=== PATIENT | female | born 1990 | race Hispanic/Latino ===

== ENCOUNTER → 2024-02-06 | Day surgery (SDC) | payer OTHER ==
[2024-02-04 16:30] LABS: BASOPHILS # (AUTO) 0.1 (0.0-0.1); BASOPHILS % 0.7 % (0.0-1.0); EOSINOPHILS # (AUTO) 0.1 (0.0-0.4); EOSINOPHILS % 1.2 % (0.0-6.0); HEMATOCRIT 39.2 % (34.2-44.1); HEMOGLOBIN 13.1 g/dL (12.0-16.0); LYMPHOCYTES # (AUTO) 2.7 (1.0-3.2); LYMPHOCYTES % 36.5 % (18.0-39.1); MEAN CORPUSCULAR HEMOGLOBIN 30.1 pg (28-32); MEAN CORPUSCULAR HGB CONC 33.4 g/dL (31-35); MEAN CORPUSCULAR VOLUME 90.1 fL (81-99); MONOCYTES # (AUTO) 0.5 (0.2-0.8); MONOCYTES % 7.2 % (4.4-11.3); NEUTROPHILS % 54.3 % (38.7-80.0); PLATELET COUNT 241 x10e3/uL (140-360); RED BLOOD COUNT 4.35 x10e6/uL (3.6-5.1); RED CELL DISTRIBUTION WIDTH 12.3 % (11.7-14.4); WHITE BLOOD COUNT 7.45 x10e3/uL (4.8-10.8)
[2024-02-04 16:50] LABS: ANION GAP 15.3 mmol/L (8-16); BILIRUBIN,TOTAL 0.4 mg/dL (0.2-1.2); CALCIUM 9.2 mg/dL (8.4-10.2); CREATININE, SERUM 0.78 mg/dL (0.57-1.11); POTASSIUM 4.3 mmol/L (3.5-5.1); TOTAL PROTEIN 7.3 g/dL (6.5-8.1)
[2024-02-04 16:51] LABS: ALBUMIN/GLOBULIN RATIO 1.2 (0.8-2.0)
[~2024-02-06] MED LIST: BUPIVACAINE HCL 0.5% INJ 30 ML VIAL INJ ONE; DEXAMETHASONE SOD PHOS INJ 4 MG/ML SDV ONE; EPINEPHRINE HCL 1:1000 1ML 1 MG/ML AMP ONE; FENTANYL CITRATE/PF 100MCG/2 ML INJ ONE; IBUPROFEN400 MG PO; KETOROLAC TROMETHAMINE 30 MG/ML VIAL ONE; LIDOCAINE 1% W/EPINEPHRINE 20 ML VIAL ONE; LIDOCAINE HCL 2% LOCAL INJ 5 ML SDV VIAL INJ ONE; MELOXICAM7.5 MG PO; MIDAZOLAM HCL 2 MG/2 ML VIAL ONE; ONDANSETRON HCL INJ 2MG/ML 2ML 2 MG/ML VIAL ONE; PROPOFOL IV EMULSION 10 MG/ML 20 ML VIAL ONE; ROPIVACAINE 0.5% 5 MG/ML 30 ML SDV ONE; SEVOFLURANE INHAL SOLN 250 ML PEN BTL ONE
[2024-02-06] MEDS: LACTATED RINGER'S 1,000 ML ONE (06:25)
[2024-02-06] MEDS: CEFAZOLIN SODIUM 2 GM ONE (06:26)
[2024-02-06 08:30] VITALS: TEMP 97
[2024-02-06 09:15] VITALS: BP 110/68; PULSE 84; RESP 16; O2SAT 99
== END | disposition home or self-care (01) ==
LOC: OR 05:25
PROVIDERS: ATTEND Orthopaedic Surgery
DX: S83.281A Other tear of lateral meniscus, current injury, right knee, initial encounter (principal); S83.231A Complex tear of medial meniscus, current injury, right knee, initial encounter; M94.261 Chondromalacia, right knee; M67.51 Plica syndrome, right knee; X50.3XXA Overexertion from repetitive movements, initial encounter; Y93.02 Activity, running; Y99.8 Other external cause status; Z01.812 Encounter for preprocedural laboratory examination; Z79.1 Long term (current) use of non-steroidal anti-inflammatories (NSAID)
CPT/HCPCS: 29881; 36415; 80053; 81025; 85025; J0171; J1100; J1885; J2001; J2250; J2405; J2704; J2795; J3010; J7121